=== PATIENT | male | born 1940 | race Caucasian/White ===

== ENCOUNTER 2016-09-19 15:57 | Emergency (ER) | payer OTHER ==
[~2016-09-19] VITALS: Ht 167.6 cm; Wt 83.9 kg
[~2016-09-19 15:57] MED LIST: ASPERDRINK81 MG PO; BAYER ASPIRIN325 MG PO; CIPRO500 MG PO; CRESTOR10 MG PO; DIABETIC MEDICATION; EFFIENT10 MG PO; FLOMAX0.4 MG PO; GLIPIZIDE5 M1 PO; METOPROLOL PO; METOPROLOL TART25 MG PO; NAPROSYN500 MG PO; PERCOCET 5/31 TABLET PO; TRAVATAN 050 DROP/2. BOTH EYES; ZETIA10 MG PO; ZOFRAN4 MG PO
[2016-09-19 16:48] LABS: HEMATOCRIT 43.6 % (38.0-50.0); MCV 87.9 FL (86-99); PLATELET COUNT 195 K/uL (156-360); RBC DIS.WIDTH-CV 14.7 % (11.8-14.6); RBC DIS.WIDTH-SD 46.2 % (39-53); RED BLOOD COUNT 4.96 M/uL (4.00-5.50); WHITE BLOOD COUNT 8.5 K/uL (4.1-10.2)
[2016-09-19 17:02] LABS: CHLORIDE 104 mEq/L (99-109); POTASSIUM 4.6 mEq/L (3.7-5.4); SODIUM 140 mEq/L (136-147)
[2016-09-19 17:03] LABS: GLUCOSE 303 mg/dL (70-99)
[2016-09-19 17:05] LABS: ANION GAP 14 MEQ/L (2-14)
[2016-09-19 17:07] LABS: GFR ESTIMATE (CALCULATED) > 59 mL/min/
[2016-09-19 17:08] LABS: UREA NITROGEN (BUN) 28 mg/dL (9-23)
[2016-09-19 17:09] LABS: TROP-I INTERPRETATION NEGATIVE; TROPONIN-I < 0.01 ng/mL (0.0-0.30)
[2016-09-19 17:30] VITALS: BP 135/80
[2016-09-19 18:00] VITALS: BP 138/77
[2016-09-19] MEDS ORDERED: ZITHROMAX250 MG PO (18:04)
[2016-09-19 18:19] VITALS: BP 138/77
== END 2016-09-19 18:21 | disposition home or self-care (01) ==
LOC: EME 15:57
DX: J44.1 Chronic obstructive pulmonary disease with (acute) exacerbation (principal); E11.9 Type 2 diabetes mellitus without complications; E78.5 Hyperlipidemia, unspecified; I10 Essential (primary) hypertension; I25.2 Old myocardial infarction; Z95.5 Presence of coronary angioplasty implant and graft; Z87.891 Personal history of nicotine dependence
CPT/HCPCS: 71020; 80048; 84484; 85027; 93005; 94640; 99281; 99284; J7512